=== PATIENT | female | born 1935 | race Caucasian/White ===

== ENCOUNTER 2023-09-01 15:41 | Emergency (ER) | payer MEDICARE ==
[~2023-09-01] VITALS: Ht 160 cm; Wt 52.2 kg
[2023-09-01] MEDS ORDERED: LIDOCAINE 1%-EPI 1:100,000 20 ML VIAL ONE (16:52)
[2023-09-01] MEDS ORDERED: TDAP [DIPH/PERTUSSIS/TET] 0.5 ML VIAL IM ONE ×2 (17:00→17:09)
[2023-09-01 18:03] VITALS: BP 136/81; TEMP 97.9; O2SAT 100
== END 2023-09-01 18:04 | disposition home or self-care (01) ==
LOC: ER 15:41
DX: S01.81XA Laceration without foreign body of other part of head, initial encounter (principal); Z60.2 Problems related to living alone; W01.0XXA Fall on same level from slipping, tripping and stumbling without subsequent striking against object, initial encounter; Y93.89 Activity, other specified; Y92.89 Other specified places as the place of occurrence of the external cause; Y99.8 Other external cause status
CPT/HCPCS: 12013; 90471; 90715; 99283; A6403; J3490